=== PATIENT | male | born 2000 | race Caucasian/White ===

== ENCOUNTER 2023-03-21 21:39 | Emergency (ER) | payer BC ==
[~2023-03-21] VITALS: Ht 172.7 cm; Wt 63.5 kg
[2023-03-21 22:04] VITALS: O2SAT 100
[2023-03-21] MEDS ORDERED: BACITRACIN ZINC OINT UDPKT TOP ONE (22:45)
[2023-03-21] MEDS ORDERED: IBUPROFEN 600MG TABLET PO ONE (22:45)
[2023-03-21] MEDS ORDERED: IBUP-2029 MT (23:06)
[2023-03-22 00:24] VITALS: BP 125/63; PULSE 61; RESP 18; TEMP 98.4
[2023-03-22] MEDS ORDERED: IBUPROFEN 600MG TABLET PO NR (00:30)
== END 2023-03-22 00:26 | disposition home or self-care (01) ==
LOC: ER 21:39
DX: S60.221A Contusion of right hand, initial encounter (principal); S60.811A Abrasion of right wrist, initial encounter; X58.XXXA Exposure to other specified factors, initial encounter; Y93.89 Activity, other specified; Y92.89 Other specified places as the place of occurrence of the external cause; Y99.8 Other external cause status
CPT/HCPCS: 29125; 73130; 99283

== ENCOUNTER 2023-04-05 19:53 | Emergency (ER) | payer BC ==
[~2023-04-05] VITALS: Ht 172.7 cm; Wt 62.6 kg
[~2023-04-05 19:53] MED LIST: IBUP-2029 MT
[2023-04-05 20:52] VITALS: BP 124/79; O2SAT 98
[2023-04-05] MEDS ORDERED: IBUP-2029 PO (23:44)
[2023-04-06 00:13] VITALS: PULSE 90; RESP 16; TEMP 98.6
== END 2023-04-06 00:19 | disposition home or self-care (01) ==
LOC: ER 19:53
DX: S62.336A Displaced fracture of neck of fifth metacarpal bone, right hand, initial encounter for closed fracture (principal); X58.XXXA Exposure to other specified factors, initial encounter; Y93.89 Activity, other specified; Y92.89 Other specified places as the place of occurrence of the external cause; Y99.8 Other external cause status
CPT/HCPCS: 29125; 73130; 99283; A4565